=== PATIENT | female | born 1985 | race Caucasian/White ===

== ENCOUNTER → 2022-04-19 07:35 | Outpatient (CLI) | payer OTHER, SELFPAY ==
--- NOTE | ~2022-04-19 | XR_ITS ---
[id number] 04/19/2022 07:55 Indication: Chronic cervical spine pain Procedure: 3 views of the cervical spine Comparison: No prior studies for comparison. Findings: There is straightening of cervical lordosis. No acute fracture or traumatic malalignment. N o prevertebral soft tissue swelling. Lung apices are normal. There is mild uncinate hypertrophy at C5 -6 and C6-7. Odontoid process within normal limits. Mild disc narrowing at C6-7. Impression: 1: Mild cervical spondylosis. Reviewed, dictated and finalized at location A. Impression: 1: Mild cervical spondylosis.
== END ==
PROVIDERS: PCP Chiropractor; Visit Provider Chiropractor
DX: M47.892 Other spondylosis, cervical region (principal)
CPT/HCPCS: 72040